=== PATIENT | male | born 1955 | race Caucasian/White ===

== ENCOUNTER 2017-06-29 14:46 | Emergency (ER) | payer OTHER ==
[~2017-06-29] VITALS: Ht 175.3 cm; Wt 129.2 kg
[~2017-06-29 14:46] MED LIST: AMLOD-VALSA-HC1 EAC1 PO; AMLODIPINE BESY10 MG PO; AMLODIPINE BESYL5 MG PO; APRESOLINE50 MG PO; ASPIR-TRIN325 M1 PO; ASPIRIN325 MG PO; BACLOFEN10 MG PO; CATAPRES0.2 MG; CEFEPIME HCL1 GM IM; CEFTIN500 MG PO; CELEXA10 MG PO; CEPHALEXIN500 MG; CIPROFLOXACIN500 M1 PO; CITALOPRAM HBR10 MG PO; CLEOCIN300 MG PO; DESLORATADINE5 MG PO; EXELON PATCH9.5 MG TD; FAMOTIDINE20 MG PO; FLOMAX0.4 MG PO; FLORASTOR250 MG PO; FUROSEMIDE20 MG PO; FUROSEMIDE40 MG PO; GABAPENTIN300 MG PO; HYDRALAZINE HCL25 MG PO; HYDROCHLOROTHIA25 MG PO; K-DUR20 MEQ PO; KLOR-CON M2020 MEQ PO; Keflex PO; LASIX20 MG PO; LITE COAT ASPI325 M1 PO; LOPRESSOR25 MG PO; LOSARTAN POTAS100 MG PO; Lopressor PO; METOCLOPRAMIDE10 MG PO; METOPROLOL TAR100 MG PO; NAPROXEN500 MG PO; NEURONTIN300 MG PO; NOHOMEMEDS; NORCO 5/3251 TABLET PO; NORVASC10 MG PO; NORVASC5 MG PO; POTASSIUM CHLO20 ME1 PO; RANITIDINE HCL150 MG PO; SAPHRIS5 MG SL; SERTRALINE HCL50 MG PO; SIMVASTATIN20 MG PO; TAMSULOSIN HCL0.4 MG PO; TYLENOL REGULA325 MG PO; Tylenol Regular Stre PO; ZOFRAN ODT4 MG PO
[2017-06-29 16:16] LABS: HEMATOCRIT 46.2 % (38.0-50.0); MCH 28.4 PG (29.0-34.0); MCHC 31.4 G/DL (30.0-36.0); MCV 90.4 FL (86-99); MEAN PLAT.VOLUME 9.9 uM^3 (9.0-12.4); PLATELET COUNT 296 K/uL (156-360); RBC DIS.WIDTH-CV 16.7 % (11.8-14.6); RED BLOOD COUNT 5.11 M/uL (4.00-5.50); WHITE BLOOD COUNT 10.1 K/uL (4.1-10.2)
[2017-06-29 16:24] LABS: CHLORIDE 105 mEq/L (99-109); POTASSIUM 4.4 mEq/L (3.7-5.4)
[2017-06-29 16:25] LABS: SODIUM 144 mEq/L (136-147)
[2017-06-29 16:27] LABS: GLUCOSE 85 mg/dL (70-99)
[2017-06-29 16:28] LABS: ANION GAP 9 MEQ/L (2-14)
[2017-06-29 16:29] LABS: TOTAL BILIRUBIN 0.4 mg/dL (0.0-1.0)
[2017-06-29 16:30] LABS: ALKALINE PHOSPHATASE 90 IU/L (3-129); GFR ESTIMATE (CALCULATED) 55 mL/min/
[2017-06-29 16:32] LABS: UREA NITROGEN (BUN) 26 mg/dL (9-23)
[2017-06-29 17:00] LABS: ADD MIUA? YES; BILIRUBIN NEGATIVE; BLOOD SMALL; COLOR YELLOW ((YELLOW)); GLUCOSE (STRIP) NEGATIVE; KETONES NEGATIVE; LEUKOCYTES NEGATIVE; NITRITE NEGATIVE; PROTEIN (STRIP) 100; SPECIFIC GRAVITY 1.016 (1.000-1.030); UROBILINOGEN 0.2 MG/DL (0.2-1.0)
[2017-06-29 17:10] LABS: BACTERIA NONE SEEN /HPF; EPITHELIAL CELLS RARE /HPF; HYALINE CASTS 0-5 /LPF; MUCUS NONE SEEN /LPF; UCUL ADDED? NO; WHITE BLOOD CELLS 0-5 /HPF (0-5)
[2017-06-29 17:23] LABS: AMPHETAMINE NEGATIVE (500 ng/mL); BARBITURATES NEGATIVE (200 ng/mL); BENZODIAZEPINES NEGATIVE (150 ng/mL); COCAINE NEGATIVE (150 ng/mL); INTERNAL CONTROLS VALID? YES; METHADONE NEGATIVE (200 ng/mL); METHAMPHETAMINE NEGATIVE (500 ng/mL); OPIATES (MORPHINE) NEGATIVE (100 ng/mL); OXYCODONE NEGATIVE (100 ng/mL); PHENCYCLIDINE NEGATIVE (25 ng/mL); PROPOXYPHENE NEGATIVE (300 ng/mL); THC CANNABINOIDS NEGATIVE (50 ng/mL); TRICYCLIC ANTIDEPRESSANTS NEGATIVE (300 ng/mL)
[2017-06-30] MEDS ORDERED: ARICEPT10 MG PO (10:20)
[2017-06-30 10:36] VITALS: BP 162/88
== END 2017-06-30 10:45 | disposition home or self-care (01) ==
LOC: EME 14:46
PROVIDERS: Emergency Medicine
DX: F03.91 Unspecified dementia, unspecified severity, with behavioral disturbance (principal); Z91.83 Wandering in diseases classified elsewhere; R41.9 Unspecified symptoms and signs involving cognitive functions and awareness; F32.9 Major depressive disorder, single episode, unspecified; E78.5 Hyperlipidemia, unspecified; I10 Essential (primary) hypertension; K21.9 Gastro-esophageal reflux disease without esophagitis; D64.9 Anemia, unspecified; Z86.73 Personal history of transient ischemic attack (TIA), and cerebral infarction without residual deficits; Z85.038 Personal history of other malignant neoplasm of large intestine; Z93.3 Colostomy status; Z79.82 Long term (current) use of aspirin; Z88.0 Allergy status to penicillin; Z87.891 Personal history of nicotine dependence
CPT/HCPCS: 80053; 81003; 82140; 85027; 90837; 99281; 99284

== ENCOUNTER 2017-07-07 08:47 | Emergency (ER) | payer OTHER ==
[~2017-07-07] VITALS: Ht 172.7 cm; Wt 132.5 kg
[~2017-07-07 08:47] MED LIST changes: +ARICEPT10 MG PO
[2017-07-07 09:52] LABS: BASOPHIL COUNT 0.1 K/uL (0-0.1); EOSINOPHIL COUNT 0.6 K/uL (0-0.3); HEMATOCRIT 40.9 % (38.0-50.0); IMMATURE GRANULOCYTE (%) 0.4 % (0.0-0.7); INSTRUMENT ABS NEUTROPHIL CT 5.1 K/uL; LYMPHOCYTE COUNT 2.6 K/uL (1.0-2.8); MCH 28.6 PG (29.0-34.0); MCV 89.3 FL (86-99); MEAN PLAT.VOLUME 11.4 uM^3 (9.0-12.4); MONOCYTE (%) 10.4 % (3-12); NEUTROPHIL (%) 54.8 % (45-76); NEUTROPHIL COUNT 5.1 K/uL (1.8-6.4); PLATELET COUNT 309 K/uL (156-360); RBC DIS.WIDTH-SD 55.3 % (39-53); RED BLOOD COUNT 4.58 M/uL (4.00-5.50); WHITE BLOOD COUNT 9.2 K/uL (4.1-10.2)
[2017-07-07 10:03] LABS: CHLORIDE 105 mEq/L (99-109); POTASSIUM 3.7 mEq/L (3.7-5.4); SODIUM 142 mEq/L (136-147)
[2017-07-07 10:05] LABS: GLUCOSE 97 mg/dL (70-99)
[2017-07-07 10:06] LABS: ANION GAP 12 MEQ/L (2-14)
[2017-07-07 10:07] LABS: TOTAL BILIRUBIN 0.4 mg/dL (0.0-1.0)
[2017-07-07 10:09] LABS: ALKALINE PHOSPHATASE 94 IU/L (3-129); GFR ESTIMATE (CALCULATED) > 59 mL/min/
[2017-07-07 10:10] LABS: UREA NITROGEN (BUN) 18 mg/dL (9-23)
[2017-07-07 10:20] LABS: LIPASE 117 U/L (1.0-51.0)
[2017-07-07 11:48] LABS: ADD MIUA? YES; BILIRUBIN NEGATIVE; BLOOD SMALL; COLOR STRAW ((YELLOW)); GLUCOSE (STRIP) NEGATIVE; KETONES NEGATIVE; LEUKOCYTES NEGATIVE; NITRITE NEGATIVE; PROTEIN (STRIP) 30; SPECIFIC GRAVITY 1.015 (1.000-1.030); UROBILINOGEN 0.2 MG/DL (0.2-1.0)
[2017-07-07 11:51] LABS: BACTERIA NONE SEEN /HPF; EPITHELIAL CELLS RARE /HPF; MUCUS TRACE /LPF; RED BLOOD CELLS 0-5 /HPF (0-5); WHITE BLOOD CELLS 0-5 /HPF (0-5)
[2017-07-07 13:34] VITALS: BP 171/83
== END 2017-07-07 13:35 | disposition home or self-care (01) ==
LOC: EME 08:47
PROVIDERS: Emergency Medicine
DX: R10.9 Unspecified abdominal pain (principal); Z85.038 Personal history of other malignant neoplasm of large intestine; Z93.3 Colostomy status; I10 Essential (primary) hypertension; E11.9 Type 2 diabetes mellitus without complications; E78.5 Hyperlipidemia, unspecified; K21.9 Gastro-esophageal reflux disease without esophagitis; F03.90 Unspecified dementia, unspecified severity, without behavioral disturbance, psychotic disturbance, mood disturbance, and anxiety; F32.9 Major depressive disorder, single episode, unspecified; Z86.73 Personal history of transient ischemic attack (TIA), and cerebral infarction without residual deficits; Z90.49 Acquired absence of other specified parts of digestive tract; Z87.891 Personal history of nicotine dependence; Z88.0 Allergy status to penicillin
CPT/HCPCS: 74177; 80053; 81003; 83690; 85025; 99281; 99284; J7030

== ENCOUNTER 2017-07-12 00:34 | Emergency (ER) | payer OTHER ==
[~2017-07-12] VITALS: Ht 172.7 cm; Wt 132.5 kg
[2017-07-12 01:51] LABS: HEMATOCRIT 43.6 % (38.0-50.0); MCH 28.5 PG (29.0-34.0); MCHC 31.2 G/DL (30.0-36.0); MCV 91.2 FL (86-99); MEAN PLAT.VOLUME 11.4 uM^3 (9.0-12.4); PLATELET COUNT 266 K/uL (156-360); RED BLOOD COUNT 4.78 M/uL (4.00-5.50); WHITE BLOOD COUNT 10.8 K/uL (4.1-10.2)
[2017-07-12 01:59] LABS: CHLORIDE 103 mEq/L (99-109); POTASSIUM 3.5 mEq/L (3.7-5.4); SODIUM 140 mEq/L (136-147)
[2017-07-12 02:00] LABS: GLUCOSE 80 mg/dL (70-99)
[2017-07-12 02:02] LABS: ANION GAP 10 MEQ/L (2-14)
[2017-07-12 02:04] LABS: GFR ESTIMATE (CALCULATED) > 59 mL/min/
[2017-07-12 02:05] LABS: UREA NITROGEN (BUN) 20 mg/dL (9-23)
[2017-07-12 04:52] VITALS: BP 122/62
== END 2017-07-12 04:55 | disposition home or self-care (01) ==
LOC: EME → EDSEX 00:34 → EDBD 00:34 → EME 00:34
PROVIDERS: Emergency Medicine
DX: K62.89 Other specified diseases of anus and rectum (principal); Z85.038 Personal history of other malignant neoplasm of large intestine; Z90.49 Acquired absence of other specified parts of digestive tract; Z93.3 Colostomy status; F03.90 Unspecified dementia, unspecified severity, without behavioral disturbance, psychotic disturbance, mood disturbance, and anxiety; I10 Essential (primary) hypertension; E78.5 Hyperlipidemia, unspecified; Z79.82 Long term (current) use of aspirin; Z87.891 Personal history of nicotine dependence
CPT/HCPCS: 80048; 85027; 99281; 99283

== ENCOUNTER 2017-07-15 11:00 | Inpatient (IN) | payer OTHER ==
[~2017-07-15] VITALS: Ht 175.3 cm; Wt 125.6 kg
[2017-07-15 13:20] LABS: BASOPHIL COUNT 0.1 K/uL (0-0.1); EOSINOPHIL (%) 7.1 % (0-5); EOSINOPHIL COUNT 0.7 K/uL (0-0.3); HEMATOCRIT 43.3 % (38.0-50.0); IMMATURE GRANULOCYTE (%) 0.3 % (0.0-0.7); INSTRUMENT ABS NEUTROPHIL CT 4.4 K/uL; LYMPHOCYTE COUNT 3.2 K/uL (1.0-2.8); MCH 28.6 PG (29.0-34.0); MCHC 31.4 G/DL (30.0-36.0); MEAN PLAT.VOLUME 9.9 uM^3 (9.0-12.4); MONOCYTE (%) 11.5 % (3-12); MONOCYTE COUNT 1.1 K/uL (0-0.8); NEUTROPHIL (%) 46.9 % (45-76); NEUTROPHIL COUNT 4.4 K/uL (1.8-6.4); PLATELET COUNT 273 K/uL (156-360); RBC DIS.WIDTH-CV 16.5 % (11.8-14.6); RBC DIS.WIDTH-SD 55.8 % (39-53); RED BLOOD COUNT 4.76 M/uL (4.00-5.50); WHITE BLOOD COUNT 9.4 K/uL (4.1-10.2)
[2017-07-15 13:30] LABS: CHLORIDE 104 mEq/L (99-109); SODIUM 140 mEq/L (136-147)
[2017-07-15 13:32] LABS: GLUCOSE 96 mg/dL (70-99)
[2017-07-15 13:33] LABS: ANION GAP 9 MEQ/L (2-14)
[2017-07-15 13:35] LABS: SERUM ETHYL ALCOHOL < 10 mg/dL
[2017-07-15 13:36] LABS: GFR ESTIMATE (CALCULATED) 55 mL/min/
[2017-07-15 13:37] LABS: UREA NITROGEN (BUN) 16 mg/dL (9-23)
[2017-07-15 15:08] LABS: ADD MIUA? YES; BILIRUBIN NEGATIVE; BLOOD NEGATIVE; COLOR YELLOW ((YELLOW)); GLUCOSE (STRIP) NEGATIVE; KETONES NEGATIVE; LEUKOCYTES NEGATIVE; NITRITE NEGATIVE; PROTEIN (STRIP) 100; SPECIFIC GRAVITY 1.012 (1.000-1.030); UROBILINOGEN 0.2 MG/DL (0.2-1.0)
[2017-07-15 15:12] LABS: BACTERIA NONE SEEN /HPF; EPITHELIAL CELLS RARE /HPF; HYALINE CASTS 0-5 /LPF; MUCUS TRACE /LPF; RED BLOOD CELLS 0-5 /HPF (0-5); UCUL ADDED? NO; WHITE BLOOD CELLS 0-5 /HPF (0-5)
[2017-07-15 15:29] LABS: AMPHETAMINE NEGATIVE (500 ng/mL); BARBITURATES NEGATIVE (200 ng/mL); BENZODIAZEPINES NEGATIVE (150 ng/mL); COCAINE NEGATIVE (150 ng/mL); INTERNAL CONTROLS VALID? YES; METHADONE NEGATIVE (200 ng/mL); METHAMPHETAMINE NEGATIVE (500 ng/mL); OPIATES (MORPHINE) NEGATIVE (100 ng/mL); OXYCODONE NEGATIVE (100 ng/mL); PHENCYCLIDINE NEGATIVE (25 ng/mL); PROPOXYPHENE NEGATIVE (300 ng/mL); THC CANNABINOIDS NEGATIVE (50 ng/mL); TRICYCLIC ANTIDEPRESSANTS NEGATIVE (300 ng/mL)
[2017-07-15] MEDS ORDERED: RISPERDAL0.5 MG PO (16:59)
[2017-07-16 00:27] VITALS: BP 149/77
[2017-07-16 07:38] VITALS: BP 136/63
[2017-07-16] MEDS ORDERED: TRAZODONE HCL50 MG PO (10:06)
[2017-07-16] MEDS ORDERED: APRESOLINE25 MG PO (11:42)
[2017-07-16] MEDS ORDERED: EXFORGE HCT 5-1 EACH PO (11:56)
[2017-07-16] MEDS ORDERED: TOPROL XL100 MG PO (11:56)
[2017-07-16 15:32] VITALS: BP 122/62
[2017-07-17 08:01] VITALS: BP 120/70
[2017-07-17 15:45] VITALS: BP 136/73
[2017-07-18 07:56] VITALS: BP 129/63
[2017-07-18 15:32] VITALS: BP 141/73
[2017-07-19 08:56] VITALS: BP 152/75
[2017-07-19 15:59] VITALS: BP 153/81
[2017-07-20 07:57] VITALS: BP 129/63
[2017-07-20 15:29] VITALS: BP 186/90
[2017-07-20 18:07] VITALS: BP 127/86
[2017-07-21 07:48] VITALS: BP 157/75
[2017-07-21 12:01] VITALS: BP 145/72
[2017-07-21 15:42] VITALS: BP 143/75
[2017-07-22 07:57] VITALS: BP 109/74
[2017-07-22 15:10] VITALS: BP 150/74
[2017-07-23 07:51] VITALS: BP 125/63
[2017-07-23 15:59] VITALS: BP 127/72
[2017-07-24 07:42] VITALS: BP 124/74
[2017-07-24 15:38] VITALS: BP 175/86
[2017-07-25 07:36] VITALS: BP 106/57
[2017-07-25 15:19] VITALS: BP 127/61
[2017-07-27 07:02] VITALS: BP 138/61
[2017-07-27 14:44] VITALS: BP 141/71
[2017-07-27 16:31] VITALS: BP 141/73
[2017-07-27 19:53] VITALS: BP 169/82
[2017-07-28 07:34] VITALS: BP 184/87
[2017-07-28 15:24] VITALS: BP 149/95
[2017-07-29 07:35] VITALS: BP 129/82
[2017-07-29 15:18] VITALS: BP 163/86
[2017-07-29 17:55] VITALS: BP 161/77
[2017-07-30 07:17] VITALS: BP 138/76
[2017-07-30 15:29] VITALS: BP 117/64
[2017-07-31 07:55] VITALS: BP 133/69
[2017-07-31] MEDS ORDERED: CELEXA40 MG PO (08:51)
[2017-07-31] MEDS ORDERED: CITALOPRAM HBR20 MG PO (08:51)
[2017-07-31] MEDS ORDERED: RISPERIDONE1 MG PO (08:51)
[2017-07-31] MEDS ORDERED: LORAZEPAM1 MG PO (08:51)
[2017-07-31] MEDS ORDERED: RISPERIDONE0.5 MG PO (08:51)
[2017-07-31] MEDS ORDERED: K-DUR20 MEQ PO (08:51)
== END 2017-07-31 11:22 | DRG 884 ==
LOC: EME 11:00 → EDOF 21:13 → 1WEST 21:13 → ENRESERV 23:14 → 1WEST 23:56
PROVIDERS: Emergency Medicine
DX: F03.91 Unspecified dementia, unspecified severity, with behavioral disturbance (principal); F33.9 Major depressive disorder, recurrent, unspecified; C78.7 Secondary malignant neoplasm of liver and intrahepatic bile duct; C78.00 Secondary malignant neoplasm of unspecified lung; Z93.3 Colostomy status; Z87.891 Personal history of nicotine dependence; E78.5 Hyperlipidemia, unspecified; I10 Essential (primary) hypertension; I73.9 Peripheral vascular disease, unspecified; G47.30 Sleep apnea, unspecified; Z90.49 Acquired absence of other specified parts of digestive tract; K21.9 Gastro-esophageal reflux disease without esophagitis; Z85.038 Personal history of other malignant neoplasm of large intestine; Z86.73 Personal history of transient ischemic attack (TIA), and cerebral infarction without residual deficits
CPT/HCPCS: 36415; 70450; 71020; 80048; 80053; 80061; 80076; 81003; 82652; 83036; 83540; 84154 GA; 84403; 84439; 84443; 84466; 85025; 86803; 90837; 97150 GO; 97165 GO; 99281; 99285; G0103; G0480; J1630